=== PATIENT | male | born 1955 | race Caucasian/White ===

== ENCOUNTER → 2019-11-28 09:53 | Outpatient (POV) | payer OTHER, SELFPAY | PROVIDERS: Visit Provider Dermatology | DX: Z00.00 Encounter for general adult medical examination without abnormal findings (principal) ==

== ENCOUNTER → 2020-02-02 09:07 | Outpatient (CLI) | payer MEDICARE, SELFPAY ==
[2020-02-02 14:03] LABS: Basophils # 0.1 K/mm3 (0-0.2); Basophils % 0.7 % (0.1-2.0); Eosinophils # 0.2 K/mm3 (0.0-0.4); Eosinophils % 1.3 % (0.1-12.0); Hematocrit 44.1 % (42.0-52.0); Hemoglobin 14.7 g/dL (14.1-18.0); Lymphocytes # 3.5 K/mm3 (0.7-4.5); Lymphocytes % 29.3 % (10-50); Mean Corpuscular HGB Conc 33.3 g/dL (31.8-35.4); Mean Platelet Volume 7.7 fl (7.4-10.4); Monocytes # 0.6 K/mm3 (0.1-1.0); Monocytes % 4.8 % (1.7-9.3); Neutrophils # 7.7 K/mm3 (1.8-7.8); Neutrophils % 63.8 % (37.0-80.0); Platelet Count 356 K/mm3 (142-424); Red Cell Distribution Width 13.7 % (11.5-17.5)
[2020-02-02 15:11] LABS: Alanine Aminotransferase 32 U/L (12-78); Albumin Level 4.5 g/dl (3.5-5.0); Albumin/Globulin Ratio 1.7 (1.1-1.8); Alkaline Phosphatase 71 U/L (38-126); Aspartate Amino Transferase 36 U/L (17-59); Bilirubin,Total 0.5 mg/dl (0.2-1.3); Blood Urea Nitrogen 17 mg/dl (9-20); Carbon Dioxide 26 mmol/L (22.0-30.0); Chloride 100 mmol/L (98-107); Cholesterol 165 mg/dl (140-200); Estimated Glomerular Filt Rate 75 ml/min (>60); GFR (African American) 91 ML/MIN (>60); Globulin 2.7 g/dL (1.3-3.2); Glucose 138 mg/dl (74-100); HDL Cholesterol 33 mg/dl (40-60); Sodium 137 mmol/L (136-145); Total Protein,Serum 7.2 g/dl (6.3-8.2); Triglycerides 162 mg/dl (30-150); VLDL Cholesterol 32 mg/dL (0-40)
[2020-02-02 15:22] LABS: Direct LDL Cholesterol 123.47 mg/dL (100-129)
[2020-02-02 15:39] LABS: Thyroid Stimulating Hormone 2.83 uIU/mL (0.465-4.68)
== END ==
PROVIDERS: PCP Nurse Practitioner Family; Visit Provider Nurse Practitioner Family
DX: I10 Essential (primary) hypertension (principal)
CPT/HCPCS: 36415; 80053; 80061; 84443; 85025

== ENCOUNTER → 2020-10-17 10:43 | Outpatient (CLI) | payer MEDICARE, SELFPAY ==
[2020-10-17 11:21] LABS: Basophils # 0.1 K/mm3 (0-0.2); Basophils % 0.3 % (0.1-2.0); Hematocrit 29.1 % (42.0-52.0); Hemoglobin 8.8 g/dL (14.1-18.0); Lymphocytes # 1.7 K/mm3 (0.7-4.5); Lymphocytes % 8.1 % (10-50); Mean Corpuscular HGB Conc 30.2 g/dL (31.8-35.4); Mean Corpuscular Volume 79.3 fl (80-94); Mean Platelet Volume 7.8 fl (7.4-10.4); Monocytes # 0.7 K/mm3 (0.1-1.0); Monocytes % 3.6 % (1.7-9.3); Platelet Count 566 K/mm3 (142-424); Red Blood Count 3.67 M/mm3 (4.60-6.20); Red Cell Distribution Width 14.7 % (11.5-17.5); White Blood Count 20.4 K/mm3 (4.8-10.8)
[2020-10-17 11:26] LABS: MANUAL DIFFERENTIAL MANUAL DIFFERENTIAL (MANUAL DIFF)
[2020-10-17 12:21] LABS: Alanine Aminotransferase 29 U/L (12-78); Albumin/Globulin Ratio 1.3 (1.1-1.8); Alkaline Phosphatase 100 U/L (38-126); Anion Gap 17.5 mEq/L (5-15); Aspartate Amino Transferase 35 U/L (17-59); Bilirubin,Total 0.8 mg/dl (0.2-1.3); Blood Urea Nitrogen 16 mg/dl (9-20); Calcium 9.3 mg/dl (8.4-10.2); Carbon Dioxide 28 mmol/L (22.0-30.0); Chloride 87 mmol/L (98-107); Estimated Glomerular Filt Rate 67 ml/min (>60); GFR (African American) 81 ML/MIN (>60); Globulin 3.1 g/dL (1.3-3.2); Glucose 192 mg/dl (74-100); Potassium 4.5 mmoL/L (3.5-5.1); Sodium 128 mmol/L (136-145); Total Protein,Serum 7.1 g/dl (6.3-8.2)
[2020-10-17 12:52] LABS: Prostate Specific Ag Screen 0.6 ng/ml (0.0-4.0)
[2020-10-17 12:53] LABS: Thyroid Stimulating Hormone 1.96 uIU/mL (0.465-4.68)
[2020-10-17 13:36] LABS: Coronavirus 19 IgG Antibody Negative (Negative); Coronavirus 19 IgM Antibody Negative (Negative)
[2020-10-17 13:41] LABS: Eosinophils % 1 % (0-3); Lymphocytes % 8 % (10-50); Monocytes % 3 % (2-9); Neutrophils % 88 % (42-76); Platelet Estimate Moderate Increase; Total Cells Counted 100
[2020-10-17 13:42] LABS: Anisocytosis 1+; Hypochromasia 2+; Microcytosis 1+
[2020-10-18 17:19] LABS: Iron 16 ug/dL (49-181)
[2020-10-18 17:28] LABS: Total Iron Binding Capacity 435 ug/dL (261-462)
[2020-10-20 15:06] LABS: CEA 4.2 ng/mL (0.0-4.7)
== END ==
PROVIDERS: Visit Provider Nurse Practitioner Family
DX: Z03.818 Encounter for observation for suspected exposure to other biological agents ruled out (principal); R53.81 Other malaise; K59.00 Constipation, unspecified; D50.9 Iron deficiency anemia, unspecified; K62.89 Other specified diseases of anus and rectum; D72.829 Elevated white blood cell count, unspecified; E87.1 Hypo-osmolality and hyponatremia; D37.5 Neoplasm of uncertain behavior of rectum; Z12.5 Encounter for screening for malignant neoplasm of prostate
CPT/HCPCS: 36415; 80053; 82378; 82728; 83540; 83550; 84443; 85007; 85025; 86328; G0103

== ENCOUNTER → 2020-10-18 10:27 | Outpatient (CLI) | payer MEDICARE, SELFPAY ==
--- NOTE | 2020-10-18 10:42 | CT_ITS ---
PROCEDURE: CT CHEST WO/W CON CLINCAL INDICATION: LEUKACYTOSIS,ANEMIA,HYPONATREMIA, constipation, nausea COMPARISON: No exams were available for comparison TECHNIQUE: IV Contrast: 75ml Isovue 370 Axial images obtained with sagittal and coronal reformats. All CT scans at the facility use one or more dose reduction, viz: automated exposure control, ma/kV adjustment per patient size (including targeted exams where dose is matched to indication, i.e. head), or iterative reconstruction technique. FINDINGS: HEART AND MEDIASTINAL STRUCTURES: Overall cardiac size is normal though there is borderline left atrial enlargement. There is moderate coronary arterial calcification. LUNGS AND PLEURAL SPACES: The lung hunt are well-expanded and appear clear of infiltrate. There is no pulmonary congestion and there is no pleural fluid. BONY STRUCTURES: No acute bony abnormalities apparent. There are minor degenerate changes midthoracic spine. UPPER ABDOMEN: Unremarkable. ADDITIONAL FINDINGS: No other significant abnormalities. IMPRESSION: Moderate coronary artery calcification otherwise essentially unremarkable CT scan of the chest Dictated by: Dr. Santos De Luna MD 10/18/2020 12:02 Dr. Santos De Luna MD in 10/18/2020 12:02
--- NOTE | 2020-10-18 10:42 | CT_ITS ---
PROCEDURE: CT ABDOMEN PELVIS WO/W CON CLINICAL INDICATION: LEUKACYTOSIS,ANEMIA,HYPONATREMIA COMPARISON: No exams were available for comparison TECHNIQUE: IV Contrast: 75ML OPTIRAY 350 Oral Contrast none given Axial images obtained with sagittal and coronal reformats. All CT scans at the facility use one or more dose reduction, viz: automated exposure control, ma/kV adjustment per patient size (including targeted exams where dose is matched to indication, i.e. head), or iterative reconstruction technique. FINDINGS: Lower thorax: No acute finding ABDOMEN: Liver: No masses or biliary dilatation. Gallbladder: Nondistended. No radio opaque stones. Pancreas: No masses or peripancreatic fluid collections. Spleen: unremarkable Adrenals: The right adrenal is normal, there is a small nodular lesion left adrenal isodense with the renal gland and probably an adenoma Kidneys/ureters: The kidneys are normal in size and show symmetrical function both appearing normal. ABDOMEN & PELVIS: Stomach bowel: The stomach and duodenal sweep appear normal. There is a large left inguinal hernia containing couple of loops of nondilated small bowel and mesentery. The remainder of the small bowel is unremarkable.. There is a somewhat dilated left gonadal vein probably secondary to distortion of the left hemiscrotum due to the inguinal hernia. The appendix is normal in caliber and air-filled. There is scattered stool and gas seen throughout the colon to the level of the rectum. There is asymmetric wall thickening of the rectum with some distortion of the air filled lumen worrisome for a malignant mass. Peritoneum: No abnormal fluid collections. No obvious inflammatory changes. No free air. Lymph nodes: No enlarged lymph nodes apparent. Vasculature: There is moderate arteriosclerotic calcification of the abdominal aorta but there is no aneurysm. There is prominent arteriosclerotic calcification of the splenic artery but there is no aneurysm. Bones: No acute fracture PELVIS: Reproductive: unremarkable Bladder: The bladder is moderately filled with urine and appears normal. The prostate is normal. Appendix: Normal IMPRESSION: 1. Asymmetrical wall thickening of the rectum with distortion of the lumen worrisome for malignancy. 2. Large left inguinal hernia containing nondilated loops of small bowel and mesentery 3. Possible small adenoma left adrenal gland Dictated by: Dr. Santos De Luna MD 10/18/2020 12:29 Dr. Santos De Luna MD in [place] 10/18/2020 12:29
== END ==
PROVIDERS: PCP Nurse Practitioner Family; Visit Provider Nurse Practitioner Family
DX: D72.829 Elevated white blood cell count, unspecified (principal); D30.9 Benign neoplasm of urinary organ, unspecified; E87.1 Hypo-osmolality and hyponatremia
CPT/HCPCS: 71270; 74178; Q9967

== ENCOUNTER 2020-10-23 15:25 | Inpatient (IN) | payer MEDICARE, SELFPAY ==
[2020-10-23] VITALS (14 sets, daily range): BP systolic 92–142; BP diastolic 57–75; PULSE 88–121; RESP 16–22; TEMP 36.7–38.7; O2SAT 92–100; BMI 26.4
--- NOTE | 2020-10-23 16:07 | PC.NURSE ---
Dr. Avitia notified.
[2020-10-23 16:31] LABS: Basophils % 0.1 % (0.1-2.0); Hemoglobin 8.1 g/dL (14.1-18.0); Lymphocytes # 1.1 K/mm3 (0.7-4.5); Lymphocytes % 6.4 % (10-50); Mean Corpuscular Hemoglobin 23.6 pg (27.0-31.2); Mean Corpuscular Volume 76.3 fl (80-94); Mean Platelet Volume 8.1 fl (7.4-10.4); Monocytes # 0.6 K/mm3 (0.1-1.0); Monocytes % 3.7 % (1.7-9.3); Neutrophils # 14.7 K/mm3 (1.8-7.8); Neutrophils % 89.7 % (37.0-80.0); Platelet Count 567 K/mm3 (142-424); Red Blood Count 3.41 M/mm3 (4.60-6.20); Red Cell Distribution Width 14.9 % (11.5-17.5); White Blood Count 16.4 K/mm3 (4.8-10.8)
[2020-10-23 16:39] LABS: Chloride 88 mmol/L (98-107); MANUAL DIFFERENTIAL MANUAL DIFFERENTIAL (MANUAL DIFF); Potassium 3.4 mmoL/L (3.5-5.1); Sodium 125 mmol/L (136-145)
[2020-10-23 16:41] LABS: Alanine Aminotransferase 27 U/L (12-78); Blood Urea Nitrogen 18 mg/dl (9-20); Creatinine Clearance Estimated 77 mL/min (50-200); Estimated Glomerular Filt Rate 67 ml/min (>60); GFR (African American) 81 ML/MIN (>60)
[2020-10-23 16:42] LABS: Albumin Level 3.8 g/dl (3.5-5.0); Albumin/Globulin Ratio 1.1 (1.1-1.8); Alkaline Phosphatase 114 U/L (38-126); Anion Gap 13.4 mEq/L (5-15); Aspartate Amino Transferase 41 U/L (17-59); Bilirubin,Total 0.6 mg/dl (0.2-1.3); Calcium 8.9 mg/dl (8.4-10.2); Carbon Dioxide 27 mmol/L (22.0-30.0); Globulin 3.5 g/dL (1.3-3.2); Glucose 191 mg/dl (74-100); Total Protein,Serum 7.3 g/dl (6.3-8.2)
--- NOTE | 2020-10-23 16:42 | HMH.GSCON ---
*Admission Date: 10/23/20 *Reason for consult:: Anemia; rectal mass *History of present illness: This is a 65-year-old gentleman seen in consultation from Dr. Walton for evaluation regarding anemia and rectal mass. He was recently diagnosed with leukocytosis and anemia after presenting with weakness. A CT scan of his chest, abdomen, and pelvis completed on October 18 revealed rectal wall thickening consistent with neoplasm. Secondary to the lesion's location he was scheduled for further evaluation and management at a tertiary care center. He has been scheduled to initially undergo endoscopic evaluation with [facility] in [place] to be completed on November 04. However, due to increasing weakness and concerns for worsening anemia he was admitted for observation after outpatient follow-up earlier today. Review of Systems - Constitutional Reports fatigue, Reports lack of energy - Eyes Denies change in vision - ENT Denies difficulty swallowing - *Cardiovascular Denies chest pain at rest - *Respiratory Denies cough - *Gastrointestinal Denies bright, red blood in stools - *Genitourinary Denies difficulty urinating - *Musculoskeletal Denies tingling - Integumentary/Breasts Denies new lesions - *Neurologic Denies abnormal movements - Psychiatric Denies anxiety - Endocrine Denies flushing - Hematologic/Lymphatic Denies easy bleeding [facility] History Medical History: Denies:: Cancer, Diabetes Mellitus Type 1, Diabetes Mellitus Type 2, MRSA *Have you ever received a pneumonia vaccine?: No *Have you received a flu vaccine this season?: No Amputation: No Fractures: No - *Social History Smoking Status: Former smoker Alcohol Intake: never *Occupational Status:: retired *Travel in the last 8 weeks: None Family Hx:: Unable to obtain Meds Home Medications Medication Instructions Recorded Confirmed Type Amlodipine Besylate [Amlodipine 5 mg PO DAILY 10/23/20 10/23/20 History 10mg Tab] Bisoprolol/Hydrochlorothiazide 5 - 6.25 mg PO DAILY 10/23/20 10/23/20 History [Bisoprolol-Hctz 5-6.25 mg Tab] Metformin HCl 500 mg PO DAILY 10/23/20 10/23/20 History Allergies Allergy/AdvReac Type Severity Reaction Status Date / Time amoxicillin Allergy Verified 03/22/18 21:26 Exam Vital signs and Labs for Last 24 Hours: Temp Pulse Resp BP Pulse Ox 98.2 F 121 H 18 142/71 H 100 10/23/20 15:41 10/23/20 15:41 10/23/20 15:41 10/23/20 15:41 10/23/20 15:41 Laboratory Results - last 24 hr 10/23/20 16:00: WBC 16.4 H, RBC 3.41 L, Hgb 8.1 L, Hct 26.0 L, MCV 76.3 L, MCH 23.6 L, MCHC 31.0 L, RDW 14.9, Plt Count 567 H, MPV 8.1, Neut % (Auto) 89.7 H, Lymph % (Auto) 6.4 L, [place] % (Auto) 3.7, Eos % (Auto) 0.0 L, Baso % (Auto) 0.1, Neut # (Auto) 14.7 H, Lymph # (Auto) 1.1, [place] # (Auto) 0.6, Eos # (Auto) 0.0, Baso # (Auto) 0.0 10/23/20 16:00: Sodium 125 L, Potassium 3.4 L, Chloride 88 L I & O for Last 24 hours: Intake & Output 10/21/20 10/22/20 10/23/20 10/24/20 11:59 11:59 11:59 11:59 Weight 179 lb 7 oz - Constitutional no acute distress - *Routine Respiratory Exam Absent: respiratory distress - *Routine Cardiovascular Exam Present: other - *Routine Abdominal Exam Absent: obese - *Routine Rectal Exam Patient deferred: visual exam, digital exam - *Routine Skin Exam Present: intact - *Routine Neurological Exam Present: alert - Routine Psychiatric Exam Present: normal affect Results - Labs 10/23/20 16:00 10/23/20 16:00 Laboratory Results - last 24 hr 10/23/20 16:00: WBC 16.4 H, RBC 3.41 L, Hgb 8.1 L, Hct 26.0 L, MCV 76.3 L, MCH 23.6 L, MCHC 31.0 L, RDW 14.9, Plt Count 567 H, MPV 8.1, Neut % (Auto) 89.7 H, Lymph % (Auto) 6.4 L, [place] % (Auto) 3.7, Eos % (Auto) 0.0 L, Baso % (Auto) 0.1, Neut # (Auto) 14.7 H, Lymph # (Auto) 1.1, [place] # (Auto) 0.6, Eos # (Auto) 0.0, Baso # (Auto) 0.0 10/23/20 16:00: Sodium 125 L, Potassium 3.4
--- NOTE | 2020-10-23 16:43 | P.CONPHA_ITS ---
[facility] Pharmacy VTE Monitoring - Patient Demographics Admission date: 10/23/20 Report Date: 10/23/20 Time: 16:43 Allergies/Adverse Reactions: Patient Allergies amoxicillin Allergy (Verified 03/22/18 21:26) Height: 1.75 m Weight: 81.391 kg - VTE Risk Labs: VTE Related Lab Results Hgb 8.1 g/dL (14.1-18.0) L 10/23/20 16:00 Hct 26.0 % (42.0-52.0) L 10/23/20 16:00 Plt Count 567 K/mm3 (142-424) H 10/23/20 16:00 BUN 18 mg/dl (9-20) 10/23/20 16:00 Creatinine 1.10 mg/dl (0.66-1.25) 10/23/20 16:00 Estimated Creat Clear 77 mL/min (50-200) 10/23/20 16:00 Was VTE Risk Assessment Performed: Yes VTE Score: 1 VTE Risk Level: Very Low Risk Clinical Trial Participant: No - Prophylaxis VTE Prophylaxis Ordered?: Yes Types of VTE Prophylaxis: TEDS Knee High
--- NOTE | 2020-10-23 16:55 | HMH.PHAINT ---
home medication list was confirmed using list from dr olw office and [facility] pharmacy
[2020-10-23 16:56] LABS: Lymphocytes % 3 % (10-50); Monocytes % 2 % (2-9); Neutrophils % 95 % (42-76); RBC Morphology Normal; Total Cells Counted 100
[2020-10-23 16:57] LABS: Hypochromasia 2+; Microcytosis 1+; Platelet Estimate Moderate Increase
[2020-10-23 17:23] LABS: Coronavirus 19 IgG Antibody Negative (Negative); Coronavirus 19 IgM Antibody Negative (Negative)
--- NOTE | 2020-10-23 18:14 | HMH.HP ---
*Admission Date: 10/23/20 *Chief complaint: Anemia, Weakness *History of present illness: 65 yr old male with recently diagnosed iron deficiency anemia and rectal mass seen on CT presented to office today with complaints of increased malaise, weakness and requiring a cane to ambulate safely which is new. Decision was made to admit for transfsuion and additional evaluation. Found to be hyponatremic as well which is likely contributing to his symptoms Of note, he is scheduled to see a colorectal surgeon in [place] on November 04, 2020. 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, retired) Smoking Status: Former smoker Alcohol Intake: never Substance Use Type: denies use *Occupational Status:: retired *Travel in the last 8 weeks: None Family Hx:: Cancer (Breast), Coronary Artery Disease Review of Systems - Review of Systems Review of systems:: pertinent systems reviewed and negative unless documented below - Constitutional Reports fatigue, Reports lack of energy, Reports malaise, Reports weakness, Reports weight loss, Denies fever(s) - *Cardiovascular Denies chest pain, Denies shortness of breath, Denies foot swelling - *Respiratory Denies cough - *Gastrointestinal Reports change in bowel habits, Reports constipation, Denies abdominal pain - *Genitourinary Denies difficulty urinating - *Musculoskeletal Denies joint pain - Integumentary/Breasts Denies rash - *Neurologic Reports weakness, Denies abnormal movements, Denies headache(s), Denies tingling - Psychiatric Reports anxiety Meds Home Medications Medication Instructions Recorded Confirmed Type Amlodipine Besylate [Amlodipine 5 mg PO DAILY 10/23/20 10/23/20 History 10mg Tab] Bisoprolol/Hydrochlorothiazide 2 tab PO DAILY 10/23/20 10/23/20 History [Bisoprolol-Hctz 5-6.25 mg Tab] Metformin HCl 500 mg PO DAILY 10/23/20 10/23/20 History Allergies Allergy/AdvReac Type Severity Reaction Status Date / Time amoxicillin Allergy Verified 03/22/18 21:26 Exam Vital signs and Labs for Last 24 Hours: Temp Pulse Resp BP Pulse Ox 98.2 F 121 H 18 142/71 H 100 10/23/20 15:41 10/23/20 15:41 10/23/20 15:41 10/23/20 15:41 10/23/20 15:41 Laboratory Results - last 24 hr 10/23/20 16:00: WBC 16.4 H, RBC 3.41 L, Hgb 8.1 L, Hct 26.0 L, MCV 76.3 L, MCH 23.6 L, MCHC 31.0 L, RDW 14.9, Plt Count 567 H, MPV 8.1, Neut % (Auto) 89.7 H, Lymph % (Auto) 6.4 L, [place] % (Auto) 3.7, Eos % (Auto) 0.0 L, Baso % (Auto) 0.1, Neut # (Auto) 14.7 H, Lymph # (Auto) 1.1, [place] # (Auto) 0.6, Eos # (Auto) 0.0, Baso # (Auto) 0.0, Total Counted 100, Neutrophils % (Manual) 95 H, Lymphocytes % (Manual) 3 L, Monocytes % (Manual) 2, Platelet Estimate Moderate increase, RBC Morphology Normal, Hypochromasia 2+, Microcytosis 1+ 10/23/20 16:00: Sodium 125 L, Potassium 3.4 L, Chloride 88 L, Carbon Dioxide 27, Anion Gap 13.4, BUN 18, Creatinine 1.10, Estimated Creat Clear 77, Estimated GFR 67, Est GFR ( Amer) 81, Glucose 191 H, Calcium 8.9, Total Bilirubin 0.6, AST 41, ALT 27, Alkaline Phosphatase 114, Total Protein 7.3, Albumin 3.8, Globulin 3.5 H, Albumin/Globulin Ratio 1.1 10/23/20 16:00: Blood Type B Positive, Antibody Screen Negative, Crossmatch (AHG) See Detail 10/23/20 16:00: SARS-CoV-2 IgG Ab (Rapid) Negative, SARS-CoV-2 IgM Ab (Rapid) Negative I & O for Last 24 hours: Intake & Output 10/21/20 10/22/20 10/23/20 10/24/20 11:59 11:59 11:59 11:59 Weight 179 lb 7 oz - *Routine H
--- NOTE | 2020-10-23 18:27 | PC.NURSE ---
Pt is alert and oriented x 4. Pt was a poor historian as far as medical history. Pt is pale and weak. He is tachy with HR counted at 106, bp is stable and he is afebrile and on RA. Pt has ns at 100 ml/hr. Awaiting blood from lab for transfusion. CB in reach. Remains safe. Have instructed pt to call for help and not get up alone as he is weak and unsteady. Fall bracelet is in place. Lungs cta, bs x 4. S1S2 noted.
--- NOTE | 2020-10-23 18:51 | PC.NURSE ---
Pt states he had x 1 loose stool.
--- NOTE | 2020-10-23 21:45 | PC.NURSE ---
Pt noted to be febrile at this time with oral temp noted at 101.4 F. Tachycardia noted as well at 104 bpm. Wolfgang ALBERT called and spoke with this RN. Provided MD with update of v/s. Pt to receive IV ATB post blood transfusion and a 500 ml bolus of IVF. states that if hgb is noted greater than 8.1 upon 1-hour post H&H no need to further notify MD mobile application architect. If hgb noted lower than 8.1 please notify MD post transfusion.
[2020-10-23 23:31] LABS: Occult Blood,Stool Positive (Negative)
[2020-10-24] VITALS (17 sets, daily range): BP systolic 109–144; BP diastolic 56–77; PULSE 86–104; RESP 16–24; TEMP 36.4–37.4; O2SAT 91–100; BMI 26.2
[2020-10-24 01:48] LABS: Hematocrit 28.2 % (42.0-52.0); Hemoglobin 8.4 g/dL (14.1-18.0)
--- NOTE | 2020-10-24 02:31 | PC.NURSE ---
Pt is alert and oriented x4. Pt tolerated blood transfusion well this evening. Administered Tylenol x1 prior to transfusion starting. pt noted afebrile since, with most recent oral temp of 98.4 F. Hgb increased to 8.4 post blood transfusion. Lungs noted clear t/o upon auscultation. Tolerated RA well with no c/o SOA. Tolerated diabetic diet well. No edema noted. Refused teds. Tolerated ambulation well with cane assist and standby staff assist. Weakness noted intermittently, this RN encouraged pt to ring call light for help with ambulation. Multiple loose stools noted this shift. No new orders when MD distribution technician consulted. Stool sent for occult specimen, positive results noted. Adequate urine output noted. VSS. Remains safe. Call light within reach. Will continue to monitor.
[2020-10-24 07:28] LABS: Chloride 95 mmol/L (98-107); Potassium 3.2 mmoL/L (3.5-5.1); Sodium 129 mmol/L (136-145)
[2020-10-24 07:31] LABS: Alanine Aminotransferase 26 U/L (12-78); Alkaline Phosphatase 80 U/L (38-126); Anion Gap 10.2 mEq/L (5-15); Aspartate Amino Transferase 38 U/L (17-59); Basophils % 0.3 % (0.1-2.0); Bilirubin,Total 0.7 mg/dl (0.2-1.3); Blood Urea Nitrogen 14 mg/dl (9-20); Calcium 8.2 mg/dl (8.4-10.2); Carbon Dioxide 27 mmol/L (22.0-30.0); Creatinine Clearance Estimated 84 mL/min (50-200); Eosinophils % 0.1 % (0.1-12.0); Estimated Glomerular Filt Rate 97 ml/min (>60); GFR (African American) 117 ML/MIN (>60); Glucose 163 mg/dl (74-100); Hematocrit 27.9 % (42.0-52.0); Lymphocytes # 1.2 K/mm3 (0.7-4.5); Lymphocytes % 10.3 % (10-50); Mean Corpuscular HGB Conc 32.2 g/dL (31.8-35.4); Mean Corpuscular Hemoglobin 25.1 pg (27.0-31.2); Mean Corpuscular Volume 78.1 fl (80-94); Mean Platelet Volume 7.8 fl (7.4-10.4); Monocytes # 0.6 K/mm3 (0.1-1.0); Monocytes % 5.8 % (1.7-9.3); Neutrophils # 9.3 K/mm3 (1.8-7.8); Neutrophils % 83.5 % (37.0-80.0); Platelet Count 414 K/mm3 (142-424); Red Blood Count 3.57 M/mm3 (4.60-6.20); Red Cell Distribution Width 15.3 % (11.5-17.5); White Blood Count 11.1 K/mm3 (4.8-10.8)
--- NOTE | 2020-10-24 08:11 | HMH.ACPN2 ---
Internal Medicine - PN: Subj *Date: 10/24/20 *Time: 08:11 Interval history: Patient still appears quite fatigued this morning. Reviewed labs, hemoglobin improved to 9 this morning. No indication for further transfusion. Hyponatremia improving. Tolerating good p.o. intake. Denies chest pain, nausea, vomiting. Had loose stools overnight that were guaiac positive. Fever resolved overnight. Quite fatigued but hemodynamically stable. Exam Vital signs and Labs for Last 24 Hours: Temp Pulse Resp BP Pulse Ox 97.7 F 96 H 17 125/72 97 10/24/20 04:00 10/24/20 04:00 10/24/20 04:00 10/24/20 04:00 10/24/20 04:00 Laboratory Results - last 24 hr 10/23/20 16:00: WBC 16.4 H, RBC 3.41 L, Hgb 8.1 L, Hct 26.0 L, MCV 76.3 L, MCH 23.6 L, MCHC 31.0 L, RDW 14.9, Plt Count 567 H, MPV 8.1, Neut % (Auto) 89.7 H, Lymph % (Auto) 6.4 L, [place] % (Auto) 3.7, Eos % (Auto) 0.0 L, Baso % (Auto) 0.1, Neut # (Auto) 14.7 H, Lymph # (Auto) 1.1, [place] # (Auto) 0.6, Eos # (Auto) 0.0, Baso # (Auto) 0.0, Total Counted 100, Neutrophils % (Manual) 95 H, Lymphocytes % (Manual) 3 L, Monocytes % (Manual) 2, Platelet Estimate Moderate increase, RBC Morphology Normal, Hypochromasia 2+, Microcytosis 1+ 10/23/20 16:00: Sodium 125 L, Potassium 3.4 L, Chloride 88 L, Carbon Dioxide 27, Anion Gap 13.4, BUN 18, Creatinine 1.10, Estimated Creat Clear 77, Estimated GFR 67, Est GFR ( Amer) 81, Glucose 191 H, Calcium 8.9, Total Bilirubin 0.6, AST 41, ALT 27, Alkaline Phosphatase 114, Total Protein 7.3, Albumin 3.8, Globulin 3.5 H, Albumin/Globulin Ratio 1.1 10/23/20 16:00: Blood Type B Positive, Antibody Screen Negative, Crossmatch (AHG) See Detail 10/23/20 16:00: SARS-CoV-2 IgG Ab (Rapid) Negative, SARS-CoV-2 IgM Ab (Rapid) Negative 10/23/20 16:05: Blood Type Confirm B Positive 10/23/20 22:50: Stool Occult Blood Positive A 10/24/20 01:40: Hgb 8.4 L, Hct 28.2 L 10/24/20 06:20: WBC 11.1 H D, RBC 3.57 L, Hgb 9.0 L, Hct 27.9 L, MCV 78.1 L, MCH 25.1 L, MCHC 32.2, RDW 15.3, Plt Count 414 D, MPV 7.8, Neut % (Auto) 83.5 H, Lymph % (Auto) 10.3, [place] % (Auto) 5.8, Eos % (Auto) 0.1, Baso % (Auto) 0.3, Neut # (Auto) 9.3 H, Lymph # (Auto) 1.2, [place] # (Auto) 0.6, Eos # (Auto) 0.0, Baso # (Auto) 0.0 10/24/20 06:20: Sodium 129 L, Potassium 3.2 L, Chloride 95 L, Carbon Dioxide 27, Anion Gap 10.2, BUN 14, Creatinine 0.80 D, Estimated Creat Clear 84, Estimated GFR 97, Est GFR ( Amer) 117 D, Glucose 163 H, Calcium 8.2 L, Total Bilirubin 0.7, AST 38, ALT 26, Alkaline Phosphatase 80, Total Protein 6.0 L, Albumin 3.0 L D, Globulin 3.0, Albumin/Globulin Ratio 1.0 L I & O for Last 24 hours: Intake & Output 10/21/20 10/22/20 10/23/20 10/24/20 23:59 23:59 23:59 23:59 Intake Total 263 / 503 1140 / 1140 Balance 263 / 503 1140 / 1140 Weight 81.391 kg 80.399 kg Narrative: - *Routine HEENT Exam Head: Present: normocephalic, atraumatic Eye: Present: EOMI, conjunctivae pink (pale) ENT: Present: mucous membranes moist - *Routine Neck Exam Present: supple. Absent: tenderness - *Routine Respiratory Exam Present: CTA bilaterally - *Routine Cardiovascular Exam Present: RRR. Absent: murmur - *Routine Abdominal Exam Present: soft, normoactive bowel sounds. Absent: tenderness, distended (large left inguinal hernia) - *Routine Extremities Exam Present: pulses intact. Absent: edema - *Routine Skin Exam Present: dry, pallor. Absent: rash - *Routine Neurological Exam Present: alert, oriented X3, moving all extremities, normal tone, normal speech - Routine Psychiatric Exam Present: cooperative, good judgment, anxious Assessment and Plan (1) Anemia Status: Acute Qualifiers: Anemia type: iron deficiency Iron deficiency anemia type: unspecified iron deficiency Qualified Code(s): D50.9 - Iron deficiency anemia, unspecified Category: Medical Code(s): D64.9 - Anemia, unspecified (2) Mass in rectum Status: Acute Category: Medical Code(s): K62.8
--- NOTE | 2020-10-24 09:56 | P.PN_ITS ---
Subjective Patient reports: no new complaints (still feels a bit worn out ) Progress Note: A&P (1) Anemia Status: Acute Assessment and plan: good response to 1 unit PRBCs. He does remain somewhat symptomatic with regard to overall weakness. He also remains slightly tachycardic. Follow-up repeat labs Additional transfusions (+/-) as per primary service (2) Mass in rectum Status: Acute Assessment and plan: Endoscopy scheduled (3) Leukocytosis Status: Acute Assessment and plan: Continues to improve (4) Hyponatremia Status: Acute (5) Diabetes type 2, controlled Status: Chronic (6) HTN (hypertension) Status: Chronic (7) Left inguinal hernia Status: Chronic (8) SIRS (systemic inflammatory response syndrome) Status: Acute Exam Vital signs and Labs for Last 24 Hours: Temp Pulse Resp BP Pulse Ox 97.9 F 104 H 24 117/59 L 91 L 10/24/20 08:00 10/24/20 08:00 10/24/20 08:00 10/24/20 08:00 10/24/20 08:00 Laboratory Results - last 24 hr 10/23/20 16:00: WBC 16.4 H, RBC 3.41 L, Hgb 8.1 L, Hct 26.0 L, MCV 76.3 L, MCH 23.6 L, MCHC 31.0 L, RDW 14.9, Plt Count 567 H, MPV 8.1, Neut % (Auto) 89.7 H, Lymph % (Auto) 6.4 L, [place] % (Auto) 3.7, Eos % (Auto) 0.0 L, Baso % (Auto) 0.1, Neut # (Auto) 14.7 H, Lymph # (Auto) 1.1, [place] # (Auto) 0.6, Eos # (Auto) 0.0, Baso # (Auto) 0.0, Total Counted 100, Neutrophils % (Manual) 95 H, Lymphocytes % (Manual) 3 L, Monocytes % (Manual) 2, Platelet Estimate Moderate increase, RBC Morphology Normal, Hypochromasia 2+, Microcytosis 1+ 10/23/20 16:00: Sodium 125 L, Potassium 3.4 L, Chloride 88 L, Carbon Dioxide 27, Anion Gap 13.4, BUN 18, Creatinine 1.10, Estimated Creat Clear 77, Estimated GFR 67, Est GFR ( Amer) 81, Glucose 191 H, Calcium 8.9, Total Bilirubin 0.6, AST 41, ALT 27, Alkaline Phosphatase 114, Total Protein 7.3, Albumin 3.8, G lobulin 3.5 H, Albumin/Globulin Ratio 1.1 10/23/20 16:00: Blood Type B Positive, Antibody Screen Negative, Crossmatch (AHG) See Detail 10/23/20 16:00: SARS-CoV-2 IgG Ab (Rapid) Negative, SARS-CoV-2 IgM Ab (Rapid) Negative 10/23/20 16:05: Blood Type Confirm B Positive 10/23/20 22:50: Stool Occult Blood Positive A 10/24/20 01:40: Hgb 8.4 L, Hct 28.2 L 10/24/20 06:20: WBC 11.1 H D, RBC 3.57 L, Hgb 9.0 L, Hct 27.9 L, MCV 78.1 L, MCH 25.1 L, MCHC 32.2, RDW 15.3, Plt Count 414 D, MPV 7.8, Neut % (Auto) 83.5 H, Lymph % (Auto) 10.3, [place] % (Auto) 5.8, Eos % (Auto) 0.1, Baso % (Auto) 0.3, Neut # (Auto) 9.3 H, Lymph # (Auto) 1.2, [place] # (Auto) 0.6, Eos # (Auto) 0.0, Baso # (Auto) 0.0 10/24/20 06:20: Sodium 129 L, Potassium 3.2 L, Chloride 95 L, Carbon Dioxide 27, Anion Gap 10.2, BUN 14, Creatinine 0.80 D, Estimated Creat Clear 84, Estimated GFR 97, Est GFR ( Amer) 117 D, Glucose 163 H, Calcium 8.2 L, Total Bilirubin 0.7, AST 38, ALT 26, Alkaline Phosphatase 80, Total Protein 6.0 L, Albumin 3.0 L D, Globulin 3.0, Albumin/Globulin Ratio 1.0 L I & O for Last 24 hours: Intake & Output 10/21/20 10/22/20 10/23/20 10/24/20 11:59 11:59 11:59 11:59 Intake Total 1643 / 1643 Balance 1643 / 1643 Weight 177 lb 4 oz - Constitutional no acute distress - *Routine Respiratory Exam Absent: respiratory distress - *Routine Cardiovascular Exam Present: tachycardia - *Routine Abdominal Exam Present: soft
--- NOTE | 2020-10-24 18:04 | PC.NURSE ---
PATIENT A&O X4, LUNGS CLEAR, PULSES EQUAL. PATIENT AMBULATED TO RESTROOM SEVERAL TIMES DURING THIS RN SHIFT. ONE EPISODE OF BLOODY BOWEL. MD AWARE. PATIENT TOLERATED MEALS, NO COMPLAINTS OF PAIN. PATIENT RECEIVED 1UNIT OF RBC, PATIENT TOLERATED ADMINISTRATION WELL. THIS RN RECEIVED RESULTS OF BLOOD CULTURE ,THIS RN REPORTED FINDINGS TO DR. HERRERA. NO NEW CONCERNS AT THIS TIME.
[2020-10-24 19:19] LABS: Hematocrit 31.7 % (42.0-52.0)
[2020-10-24 19:57] LABS: Hemoglobin 10.3 g/dL (14.1-18.0)
--- NOTE | 2020-10-24 20:06 | PC.NURSE ---
Paged MD Multani, home performance consultant for MD Walton regarding pt blood culture results. No new orders.
[2020-10-25 03:43] VITALS: BP 117/78; PULSE 90; RESP 16; TEMP 37.1; O2SAT 100
[2020-10-25 05:00] VITALS: BMI 26.0
--- NOTE | 2020-10-25 05:16 | PC.NURSE ---
Pt is A&Ox4. Lung sounds clear. Active bowel sounds in all 4 quads. Pt has ambulated to the bathroom with standby assist this shift. Balance steady with satisfactory gait. Pt has been very anxious this shift, stating oh what's wrong with me? repeatedly and very inquisitive regarding care. This nurse did discuss POC with pt and he verbalized understanding. Call light remains in reach. No other complaints or acute changes at this time. Will continue to monitor.
--- NOTE | 2020-10-25 06:47 | P.PN_ITS ---
Subjective Patient reports: feels better (He states that he feels quite a bit better after the last blood...still not normal though ) Progress Note: A&P (1) Anemia Status: Acute Assessment and plan: Good response to blood transfusion. Follow-up a.m. labs Possible discharge home with outpatient follow-up (currently scheduled for endoscopic evaluation of rectal mass) (2) Mass in rectum Status: Acute (3) Leukocytosis Status: Acute (4) Hyponatremia Status: Acute (5) Diabetes type 2, controlled Status: Chronic (6) HTN (hypertension) Status: Chronic (7) Left inguinal hernia Status: Chronic (8) SIRS (systemic inflammatory response syndrome) Status: Acute Exam Vital signs and Labs for Last 24 Hours: Temp Pulse Resp BP Pulse Ox 98.8 F 90 16 117/78 100 10/25/20 03:43 10/25/20 03:43 10/25/20 03:43 10/25/20 03:43 10/25/20 03:43 Laboratory Results - last 24 hr 10/23/20 16:00: Blood Type B Positive, Antibody Screen Negative, Crossmatch ([facility]) See Detail 10/24/20 06:20: WBC 11.1 H D, RBC 3.57 L, Hgb 9.0 L, Hct 27.9 L, MCV 78.1 L, MCH 25.1 L, MCHC 32.2, RDW 15.3, Plt Count 414 D, MPV 7.8, Neut % (Auto) 83.5 H, Lymph % (Auto) 10.3, [place] % (Auto) 5.8, Eos % (Auto) 0.1, Baso % (Auto) 0.3, Neut # (Auto) 9.3 H, Lymph # (Auto) 1.2, [place] # (Auto) 0.6, Eos # (Auto) 0.0, Baso # (Auto) 0.0 10/24/20 06:20: Sodium 129 L, Potassium 3.2 L, Chloride 95 L, Carbon Dioxide 27, Anion Gap 10.2, BUN 14, Creatinine 0.80 D, Estimated Creat Clear 84, Estimated GFR 97, Est GFR ( Amer) 117 D, Glucose 163 H, Calcium 8.2 L, Total Bilirubin 0.7, AST 38, ALT 26, Alkaline Phosphatase 80, Total Protein 6.0 L, Albumin 3.0 L D, Globulin 3.0, Albumin/Globulin Ratio 1.0 L 10/24/20 19:10: Hgb 10.3 L D, Hct 31.7 L I & O for Last 24 hours: Intake & Output 10/22/20 10/23/20 10/24/20 10/25/20 11:59 11:59 11:59 11:59 Intake Total 1643 / 1643 2041 Balance 1643 / 1643 2041 Weight 177 lb 4 oz 175 lb 14.4 oz Microbiology Reports for the Last 24 Hours: Microbiology 10/23/20 16:05 Blood Blood Culture - Preliminary 10/23/20 16:00 Blood Blood Culture - Preliminary - Constitutional no acute distress - *Routine Respiratory Exam Absent: respiratory distress - *Routine Cardiovascular Exam Present: RRR - *Routine Neurological Exam Present: alert
[2020-10-25 07:10] LABS: Basophils % 0.4 % (0.1-2.0); Eosinophils % 0.3 % (0.1-12.0); Hematocrit 36.9 % (42.0-52.0); Lymphocytes # 1.7 K/mm3 (0.7-4.5); Lymphocytes % 18.9 % (10-50); Mean Corpuscular HGB Conc 31.4 g/dL (31.8-35.4); Mean Corpuscular Hemoglobin 25.5 pg (27.0-31.2); Mean Corpuscular Volume 81.3 fl (80-94); Mean Platelet Volume 7.3 fl (7.4-10.4); Monocytes # 0.4 K/mm3 (0.1-1.0); Monocytes % 4.9 % (1.7-9.3); Neutrophils # 6.7 K/mm3 (1.8-7.8); Neutrophils % 75.5 % (37.0-80.0); Platelet Count 448 K/mm3 (142-424); Red Blood Count 4.53 M/mm3 (4.60-6.20); White Blood Count 8.9 K/mm3 (4.8-10.8)
[2020-10-25 07:15] LABS: Chloride 100 mmol/L (98-107)
[2020-10-25 07:16] LABS: Potassium 3.2 mmoL/L (3.5-5.1); Sodium 135 mmol/L (136-145)
[2020-10-25 07:18] LABS: Alanine Aminotransferase 29 U/L (12-78); Aspartate Amino Transferase 40 U/L (17-59); Blood Urea Nitrogen 9 mg/dl (9-20); Creatinine Clearance Estimated 83 mL/min (50-200); Estimated Glomerular Filt Rate 97 ml/min (>60); GFR (African American) 117 ML/MIN (>60)
[2020-10-25 07:19] LABS: Albumin Level 3.6 g/dl (3.5-5.0); Alkaline Phosphatase 90 U/L (38-126); Anion Gap 12.2 mEq/L (5-15); Bilirubin,Total 0.7 mg/dl (0.2-1.3); Calcium 8.9 mg/dl (8.4-10.2); Carbon Dioxide 26 mmol/L (22.0-30.0); Globulin 3.5 g/dL (1.3-3.2); Glucose 116 mg/dl (74-100); Total Protein,Serum 7.1 g/dl (6.3-8.2)
--- NOTE | 2020-10-25 07:45 | HMH.DCSUM ---
General - General Admission date:: 10/23/20 Discharge date: 10/25/20 HPI HPI: 65 yr old male with recently diagnosed iron deficiency anemia and rectal mass seen on CT presented to office today with complaints of increased malaise, weakness and requiring a cane to ambulate safely which is new. Decision was made to admit for transfsuion and additional evaluation. Found to be hyponatremic as well which is likely contributing to his symptoms Of note, he is scheduled to see a colorectal surgeon in [place] on November 04, 2020. Hospital Course Hospital Course: 65-year-old gentleman with recent diagnosis of colorectal mass. Has developed anemia secondary to slow GI bleed. Anemia with symptomatic leading to admission. Has received 2 units of packed red blood cells and responded well with improvement in energy and vitals. On admission however blood cultures were obtained because of his leukocytosis and he was shown to have gram-negative bacteremia (E. coli). Initiated on Levaquin with plan for 14-day treatment. Patient remained afebrile during admission. Tolerating p.o. intake. Energy somewhat improved on day of discharge but still quite fatigued. Extensive discussion about likelihood of recurring anemia and fatigue through diagnosis and treatment of his colorectal mass. Patient medically stable for discharge. Denies chest pain, nausea, vomiting, shortness of breath. Complains of fatigue. Objective Vital signs: Temp Pulse Resp BP Pulse Ox 98.8 F 90 16 117/78 100 10/25/20 03:43 10/25/20 03:43 10/25/20 03:43 10/25/20 03:43 10/25/20 03:43 Narrative: - *Routine HEENT Exam Head: Present: normocephalic, atraumatic Eye: Present: EOMI, conjunctivae pink (pale) ENT: Present: mucous membranes moist - *Routine Neck Exam Present: supple. Absent: tenderness - *Routine Respiratory Exam Present: CTA bilaterally - *Routine Cardiovascular Exam Present: RRR. Absent: murmur - *Routine Abdominal Exam Present: soft, normoactive bowel sounds. Absent: tenderness, distended (large left inguinal hernia) - *Routine Extremities Exam Present: pulses intact. Absent: edema - *Routine Skin Exam Present: dry, pallor. Absent: rash - *Routine Neurological Exam Present: alert, oriented X3, moving all extremities, normal tone, normal speech - Routine Psychiatric Exam Present: cooperative, good judgment, anxious Results Labs on day of discharge: Labs from last 24 hours 10/25/20 10/25/20 10/24/20 06:32 06:32 19:10 WBC 8.9 RBC 4.53 L D Hgb 10.3 L D Hct 36.9 L 31.7 L MCV 81.3 MCH 25.5 L MCHC 31.4 L RDW 16.0 Plt Count 448 H MPV 7.3 L Neut % (Auto) 75.5 Lymph % (Auto) 18.9 [place] % (Auto) 4.9 Eos % (Auto) 0.3 Baso % (Auto) 0.4 Neut # (Auto) 6.7 Lymph # (Auto) 1.7 [place] # (Auto) 0.4 Eos # (Auto) 0.0 Baso # (Auto) 0.0 Sodium 135 L Potassium 3.2 L Chloride 100 Carbon Dioxide 26 Anion Gap 12.2 BUN 9 D Creatinine 0.80 Estimated Creat Clear 83 Estimated GFR 97 Est GFR ( Amer) 117 Glucose 116 H Calcium 8.9 Total Bilirubin 0.7 AST 40 ALT 29 Alkaline Phosphatase 90 Total Protein 7.1 Albumin 3.6 D Globulin 3.5 H Albumin/Globulin Ratio 1.0 L Blood Type Antibody Screen Crossmatch ([facility]) 10/23/20 16:00 WBC RBC Hgb Hct MCV MCH MCHC RDW Plt Count MPV Neut % (Auto) Lymph % (Auto) [place] % (Auto) Eos % (Auto) Baso % (Auto) Neut # (Auto) Lymph # (Auto) [place] # (Auto) Eos # (Auto) Baso # (Auto) Sodium Potassium Chloride Carbon Dioxide Anion Gap BUN Creatinine Estimated Creat Clear Estimated GFR Est GFR ( Amer) Glucose Calcium Total Bilirubin AST ALT Alkaline Phosphatase Total Protein Albumin Globulin Albumin/Globulin Ratio Blood Type B Positive Antibody Screen Negative Crossma
[2020-10-25 08:00] VITALS: BP 138/78; PULSE 89; RESP 18; TEMP 36.9; O2SAT 97
[2020-10-25 08:00] LABS: Hemoglobin 11.6 g/dL (14.1-18.0)
[2020-10-25 09:00] VITALS: O2SAT 97
--- NOTE | 2020-10-25 10:26 | HMH.PHAINT ---
DISCHARGE COUNSELING COMPLETED ON PATIENT. NEW PRESCRIPTIONS FOR BISOPROLOL AND LEVOFLOXACIN. THESE WERE SENT TO [facility]. PATIENT IS TO CONTINUE ALL OTHER HOME MEDICATIONS WITH THE EXCEPTION OF BISOPROLOL/HCTZ. PATIENT VERBALIZED UNDERSTANDING AND HAD NO QUESTIONS AT THIS TIME. -MARLENE LEBLANC, PHARMD
--- NOTE | 2020-10-25 10:45 | PC.NURSE ---
DISCUSSED DISCHARGE INSTRUCTIONS WITH PT INCLUDING FOLLOW UP APPOINTMENT AND MEDICATIONS. PT VERBLIAZED UNDERSTANDING. PT WAS TOLD TO CALL DR MOONEY'S OFFICE IN THE AM AND SCHEDULE AN APPOINTMENT WITH JACQUELINE BARBOZA FOR NEXT WEEK. HE VERBALIZED UNDERSTANDING. PHARMACY EDUCATED PT ON HOME MEDICATIONS. PT WAS ADVISED TO TAKE LEVAQUIN AROUND SUPPER TONIGHT SINCE; HE RECEIVED IT AROUND 10PM WHILE HERE. HE VERBALIZED UNDERSTANDING. IV WAS REMOVED WITH CATHETER INTACT. KOBAN AND 4X4S APPLIED. HOME MEDICATIONS WERE RETURNED BACK TO THE PATIENT. NO REPORT OF PAIN WHILE UNDER MY CARE. PT IS CURRENTLY SITTING IN HIS CHAIR WITH CALL LIGHT WITHIN REACH. VSS. WILL CONTINUE TO MONITOR.
== END 2020-10-25 10:48 | disposition home or self-care (01) | DRG 374 ==
PROVIDERS: Internal Medicine Adolescent Medicine; Nurse Practitioner Family; Admitting Provider Internal Medicine Adolescent Medicine; PCP Internal Medicine Adolescent Medicine; Visit Provider Internal Medicine Adolescent Medicine
DX: D37.5 Neoplasm of uncertain behavior of rectum (principal); A41.51 Sepsis due to Escherichia coli [E. coli]; E87.1 Hypo-osmolality and hyponatremia; R65.10 Systemic inflammatory response syndrome (SIRS) of non-infectious origin without acute organ dysfunction; D50.0 Iron deficiency anemia secondary to blood loss (chronic); Z79.84 Long term (current) use of oral hypoglycemic drugs; K40.90 Unilateral inguinal hernia, without obstruction or gangrene, not specified as recurrent; E11.9 Type 2 diabetes mellitus without complications; I10 Essential (primary) hypertension
CPT/HCPCS: 36415; 80053; 82272; 85007; 85014; 85018; 85025; 86328; 86850; 87040; 87077; 87186; G0328; J1956; P9016

== ENCOUNTER → 2020-11-04 14:44 | Outpatient (CLI) | payer MEDICARE, SELFPAY ==
[2020-11-04 15:04] LABS: Basophils % 0.2 % (0.1-2.0); Eosinophils % 0.2 % (0.1-12.0); Mean Corpuscular Hemoglobin 25.7 pg (27.0-31.2); Mean Corpuscular Volume 82.3 fl (80-94)
[2020-11-04 15:12] LABS: Hematocrit 35.2 % (42.0-52.0); Lymphocytes # 1.2 K/mm3 (0.7-4.5); Lymphocytes % 10.3 % (10-50); Mean Corpuscular HGB Conc 31.3 g/dL (31.8-35.4); Mean Platelet Volume 7.3 fl (7.4-10.4); Monocytes # 0.6 K/mm3 (0.1-1.0); Monocytes % 4.8 % (1.7-9.3); Neutrophils % 84.5 % (37.0-80.0); Platelet Count 583 K/mm3 (142-424); Red Blood Count 4.27 M/mm3 (4.60-6.20); Red Cell Distribution Width 16.6 % (11.5-17.5); White Blood Count 11.9 K/mm3 (4.8-10.8)
[2020-11-04 17:07] LABS: Blood Urea Nitrogen 21 mg/dl (9-20); Calcium 9.9 mg/dl (8.4-10.2); Carbon Dioxide 27 mmol/L (22.0-30.0); Chloride 98 mmol/L (98-107); Estimated Glomerular Filt Rate 67 ml/min (>60); GFR (African American) 81 ML/MIN (>60); Glucose 168 mg/dl (74-100); Sodium 136 mmol/L (136-145)
== END ==
PROVIDERS: Visit Provider Nurse Practitioner Family
DX: I10 Essential (primary) hypertension (principal)
CPT/HCPCS: 36415; 80048; 85025

== ENCOUNTER → 2021-04-07 11:46 | Outpatient (CLI) | payer MEDICARE, SELFPAY ==
[2021-04-07 12:33] LABS: Basophils % 0.2 % (0.1-2.0); Eosinophils % 0.2 % (0.1-12.0); Hematocrit 31.5 % (42.0-52.0); Hemoglobin 10.6 g/dL (14.1-18.0); Lymphocytes # 0.7 K/mm3 (0.7-4.5); Lymphocytes % 4.9 % (10-50); Mean Corpuscular HGB Conc 33.6 g/dL (31.8-35.4); Mean Corpuscular Hemoglobin 29.8 pg (27.0-31.2); Mean Corpuscular Volume 88.7 fl (80-94); Mean Platelet Volume 7.5 fl (7.4-10.4); Monocytes # 0.7 K/mm3 (0.1-1.0); Neutrophils % 89.8 % (37.0-80.0); Platelet Count 452 K/mm3 (142-424); Red Blood Count 3.56 M/mm3 (4.60-6.20); White Blood Count 14.5 K/mm3 (4.8-10.8)
[2021-04-07 12:46] LABS: Chloride 99 mmol/L (98-107)
[2021-04-07 12:47] LABS: Potassium 4.3 mmoL/L (3.5-5.1); Sodium 134 mmol/L (136-145)
[2021-04-07 12:50] LABS: Anion Gap 15.3 mEq/L (5-15); Blood Urea Nitrogen 15 mg/dl (9-20); Calcium 9.6 mg/dl (8.4-10.2); Carbon Dioxide 24 mmol/L (22.0-30.0); Estimated Glomerular Filt Rate 113 ml/min (>60); GFR (African American) 137 ML/MIN (>60); Glucose 173 mg/dl (74-100)
[2021-04-07 13:04] LABS: MANUAL DIFFERENTIAL MANUAL DIFFERENTIAL (MANUAL DIFF)
[2021-04-07 16:10] LABS: Eosinophils % 1 % (0-3); Lymphocytes % 2 % (10-50); Monocytes % 3 % (2-9); Neutrophils % 94 % (42-76); Total Cells Counted 100
[2021-04-07 16:11] LABS: Ovalocytes 1+; Platelet Estimate Normal
== END ==
PROVIDERS: Visit Provider Nurse Practitioner Family
DX: T14.8XXA Other injury of unspecified body region, initial encounter (principal)
CPT/HCPCS: 36415; 80048; 85007; 85025

== ENCOUNTER 2023-02-15 01:05 | Emergency (ER) | payer MEDICARE, SELFPAY ==
[2023-02-15 01:06] VITALS: BP 188/100; PULSE 92; RESP 19; TEMP 36.7; O2SAT 99; BMI 26.6
--- NOTE | 2023-02-15 01:35 | CT_ITS ---
PROCEDURE INFORMATION: Exam: CT Abdomen And Pelvis With Contrast Exam date and time: 02/15/2023 2:11 AM Age: 68 years old Clinical indication: Other: Loss of bladder control; Additional info: Loss bladder control acute retention TECHNIQUE: Imaging protocol: Computed tomography of the abdomen and pelvis with contrast. Radiation optimization: All CT scans at this facility use at least one of these dose optimization techniques: automated exposure control; mA and/or kV adjustment per patient size (includes targeted exams where dose is matched to clinical indication); or iterative reconstruction. Contrast material: ISOVUE; Contrast volume: 75 ml; Contrast route: IV; REPORTING DATA: Count of CT and Cardiac NM exams in prior 12 months: This patient has received 0 known CTs and 0 known cardiac nuclear medicine studies in the 12 months prior to the current study. COMPARISON: CT ABDOMEN PELVIS WO/W CON 10/18/2020 11:18 AM FINDINGS: Lungs: No acute finding. Liver: Moderate hepatic steatosis is evident. Gallbladder and bile ducts: Normal. No calcified stones. No ductal dilation. Pancreas: Normal. No ductal dilation. Spleen: Normal. No splenomegaly. Adrenal glands: Normal. No mass. Kidneys and ureters: Normal. No hydronephrosis. Stomach and bowel: There is a left mid abdomen descending colostomy with moderate parastomal herniation of fat. Appendix: The appendix is absent Intraperitoneal space: Unremarkable. No free air. No significant fluid collection. Vasculature: Unremarkable. No abdominal aortic aneurysm. Lymph nodes: Unremarkable. No enlarged lymph nodes. Urinary bladder: The bladder is very mildly distended with diffuse thickening of the wall with 3 intraluminal calculi noted measuring up to 15 mm in size. Reproductive: Unremarkable as visualized. Bones/joints: Unremarkable. Soft tissues: There is a small fat containing right inguinal hernia. There is an ill-defined soft tissue focus in the presacral region measuring approximally 5.0 x 6.7 x 6.0 cm. This likely represents sequela of prior rectal resection and possible treatment for rectal neoplasm. Recurrent tumor can not be excluded based on this single exam. The adjacent sacrum is intact without erosive change. IMPRESSION: 1. Very mild distention of the urinary bladder with diffuse wall thickening and intraluminal calculi present. Cystitis should be considered in light of the wall thickening. 2. Ill-defined presacral soft tissue mass may represent sequela of treatment for rectal cancer however, recurrent tumor can not be excluded based on this single examination. Follow-up examination, correlation with interval study since September 2020 or PET-CT could be performed as clinically indicated. 3. Other nonurgent findings as detailed.
[2023-02-15 01:39] LABS: Microscopic, Urine URINE MICROSCOPIC (MICROSCOPIC)
[2023-02-15 01:40] LABS: Appearance,Urine CLEAR (Clear); Bilirubin,Urine Negative (Negative); Blood, Urine 3+ (Negative); Color,Urine YELLOW (Yellow); Glucose,Urine (UA) 3+ (Negative); Ketones,Urine Negative (Negative); Leukocyte Esterase,Urine Negative (Negative); Nitrate,Urine Negative (Negative); Protein,Urine TRACE (Negative); Specific Gravity, Urine 1.015 (1.005-1.030); Urobilinogen,Urine 0.2 EU/dl (0.2)
[2023-02-15 01:47] VITALS: BP 182/98; PULSE 80; RESP 19; O2SAT 97
[2023-02-15 01:52] LABS: Basophils # 0.1 K/mm3 (0-0.2); Basophils % 1.2 % (0.1-2.0); Eosinophils # 0.1 K/mm3 (0.0-0.4); Eosinophils % 1.3 % (0.1-12.0); Hematocrit 47.7 % (42.0-52.0); Hemoglobin 16.1 g/dL (14.1-18.0); Lymphocytes # 1.4 K/mm3 (0.7-4.5); Lymphocytes % 15.2 % (10-50); Mean Corpuscular HGB Conc 33.8 g/dL (31.8-35.4); Mean Corpuscular Hemoglobin 32.6 pg (27.0-31.2); Mean Corpuscular Volume 96.4 fl (80-94); Mean Platelet Volume 7.6 fl (7.4-10.4); Monocytes # 0.5 K/mm3 (0.1-1.0); Monocytes % 5.1 % (1.7-9.3); Neutrophils # 7.2 K/mm3 (1.8-7.8); Neutrophils % 77.2 % (37.0-80.0); Platelet Count 278 K/mm3 (142-424); Red Blood Count 4.95 M/mm3 (4.60-6.20); Red Cell Distribution Width 14.2 % (11.5-17.5); White Blood Count 9.4 K/mm3 (4.8-10.8)
[2023-02-15 01:55] LABS: Bacteria,Urine Trace /lpf; RBC,Urine TNTC #/hpf (0-3); Squamous Epithelial Cell,Urine Occasional #/hpf (0-5)
[2023-02-15 01:57] LABS: Alanine Aminotransferase 43 U/L (12-78); Albumin Level 5.3 g/dl (3.5-5.0); Albumin/Globulin Ratio 1.6 (1.1-1.8); Alkaline Phosphatase 73 U/L (38-126); Anion Gap 15.4 mEq/L (5-15); Aspartate Amino Transferase 45 U/L (17-59); Bilirubin,Total 0.7 mg/dl (0.2-1.3); Blood Urea Nitrogen 14 mg/dl (9-20); Calcium 9.3 mg/dl (8.4-10.2); Carbon Dioxide 27 mmol/L (22.0-30.0); Chloride 96 mmol/L (98-107); Creatinine Clearance Estimated 82 mL/min (50-200); Estimated Glomerular Filt Rate 96 ml/min (>60); GFR (African American) 116 ML/MIN (>60); Globulin 3.3 g/dL (1.3-3.2); Glucose 225 mg/dl (74-100); Potassium 4.4 mmoL/L (3.5-5.1); Sodium 134 mmol/L (136-145); Total Protein,Serum 8.6 g/dl (6.3-8.2)
[2023-02-15 02:00] VITALS: BP 169/95; PULSE 76; RESP 18; O2SAT 96
[2023-02-15 02:02] LABS: C-Reactive Protein 4.2 mg/L (0-4)
[2023-02-15 02:06] LABS: Acetone, Serum (Rapid) None Detected (None Detect)
[2023-02-15 02:30] VITALS: BP 161/91; PULSE 84; O2SAT 98
[2023-02-15 02:40] LABS: Erythrocyte Sedimentation Rate 16 mm/hr (0-20)
--- NOTE | 2023-02-15 03:05 | HMH.EDUROGM ---
Discharge Plan Disposition Patient Disposition: Home, Self-Care Chief Complaint: Urogenital-Male Prescriptions Prescriptions: No Action amlodipine 10 MG tablet 5 mg PO DAILY bisoprolol fumarate 5 MG tablet 10 mg PO DAILY Referrals Follow up/Referrals: Robb Walton MD [Primary Care Provider] - See instructions Marvin Jeffers MD [Referring] - See instructions Clinical Impressions Clinical Impression: Cystitis, Mass in rectum, Bladder calculus, Diabetes Instructions Patient Instructions: DI for Acute Cystitis Discharge ED Provider: Adriane (ED)Eliu Male Urogenital HPI General Chief complaint: Urogenital-Male Stated complaint: frequent urination Time Seen by Provider: 02/15/23 02:05 Mode of Arrival: Family Vehicle Source of Information: Patient and Medical Record Limitations: No Limitations Description of Symptoms (Recalled from ER Triage Doc. by RN): Pt c/o loss of bladder control that began last night at bedtime. States he was had no urinary issues t/o the day. Denies any gross hematuria, dysuria, or burning with urination. Denies abd pain or tenderness. Denies any fever, chills, or N/V/D. History of Present Illness HPI Narrative: has urinary sx which include dribbling w/o gross hematuria and no fever Onset (ago): hour(s) Duration: intermittent Severity: moderate Reports denies other symptoms Related Data Home Medications Medication Instructions Recorded Confirmed amlodipine 10 mg tablet 5 mg PO DAILY Blood pressure 10/23/20 02/15/23 bisoprolol fumarate 5 mg tablet 10 mg PO DAILY High blood pressure 02/15/23 02/15/23 Allergies Allergy/AdvReac Type Severity Reaction Status Date / Time amoxicillin Allergy Verified 03/22/18 21:26 [facility] Disclaimer: The information contained in this section may have been updated after the patient was seen, as this information can be updated by other users. Social History Smoking Status: Never smoker alcohol intake: never substance use type: denies use current occupational status: retired Travel in the last 8 weeks: None ROS Obtained: Yes All systems reviewed & no additional complaints except as documented Physical Exam General General appearance: alert Head Head exam: normocephalic Eye Eye exam: Present PERRL and EOMI ENT ENT exam: Present mucous membranes moist Neck Neck exam: Present trachea midline Respiratory Respiratory exam: Absent respiratory distress Cardiovascular Cardiovascular exam: Present regular rate Abdominal Exam Abdominal exam: Present soft and other (has colostomy) Extremities Exam Extremities exam: Absent calf tenderness Neurological Exam Neurological exam: Present alert and CN II-XII intact Skin Skin exam: Absent rash Medical Decision Making Medical Records Medical records reviewed: Yes I reviewed the patient's medical records. Loco Inquiry Pt receiving controlled substance: No Vital Signs: 02/15/23 01:06 02/15/23 01:47 02/15/23 02:00 Temperature 98.1 F Temperature Source Oral Pulse Rate 80 76 Pulse Rate [Right] 92 H Respiratory Rate 19 19 18 Blood Pressure 182/98 H 169/95 H Blood Pressure [Right Arm] 188/100 H Blood Pressure Mean [Right Arm] 129 Blood Pressure Source [Right Arm] Automatic Cuff 02 Sat by Pulse Oximetry 99 97 96 Oxygen Delivery Method Room Air Room Air Room Air 02/15/23 02:30 Temperature Temperature Source Pulse Rate 84 Pulse Rate [Right] Respiratory Rate Blood Pressure 161/91 H Blood Pressure [Right Arm] Blood Pressure Mean [Right Arm] Blood Pressure Source [Right Arm] 02 Sat by Pulse Oximetry 98 Oxygen Delivery Method Room Air Lab Data Lab results reviewed: Yes I reviewed the patient's lab results. Lab Results 02/15/23 01:10: Urine Color Yellow, Urine Appearance Clear, Urine pH 7.0, Ur Specific [place] 1.015, Urine Protein Trace, Urine Glucose (UA) 3+, Urine Ketones Negative, Urine Blood 3+, Urine Nitrate Negative,
[2023-02-15 03:18] VITALS: BP 181/97; PULSE 79; RESP 17; TEMP 36.8; O2SAT 99
[2023-02-15 03:35] LABS: Hemoglobin A1C 6.8 % (4.0-6.0)
== END 2023-02-15 03:36 | disposition home or self-care (01) ==
PROVIDERS: Emergency Provider Emergency Medicine; PCP Internal Medicine Adolescent Medicine
DX: N39.498 Other specified urinary incontinence (principal)
CPT/HCPCS: 74177; 80053; 81001; 82009; 83036; 84145; 85025; 85651; 86140; 87086; 96360; 99284; 99285; Q9967

== ENCOUNTER 2024-10-05 09:34 | Outpatient (CLI) | payer MEDICARE, SELFPAY ==
[2024-10-05 09:58] LABS: Basophils # 0.1 K/mm3 (0-0.2); Basophils % 1.1 % (0.1-2.0); Eosinophils # 0.1 K/mm3 (0.0-0.4); Eosinophils % 1.9 % (0.1-12.0); Lymphocytes # 1.8 K/mm3 (0.7-4.5); Lymphocytes % 23.6 % (10-50); Mean Corpuscular HGB Conc 35.6 g/dL (31.8-35.4); Mean Corpuscular Hemoglobin 33.1 pg (27.0-31.2); Mean Corpuscular Volume 92.8 fl (80-94); Mean Platelet Volume 7.4 fl (7.4-10.4); Monocytes # 0.4 K/mm3 (0.1-1.0); Monocytes % 5.1 % (1.7-9.3); Neutrophils # 5.1 K/mm3 (1.8-7.8); Neutrophils % 68.4 % (37.0-80.0); Platelet Count 244 K/mm3 (142-424); Red Blood Count 4.85 M/mm3 (4.60-6.20); Red Cell Distribution Width 13.7 % (11.5-17.5); White Blood Count 7.4 K/mm3 (4.8-10.8)
[2024-10-05 10:45] LABS: Albumin Level 4.7 g/dl (3.5-5.0); Chloride 100 mmol/L (98-107); Potassium 4.1 mmoL/L (3.5-5.1); Sodium 136 mmol/L (136-145)
[2024-10-05 10:48] LABS: Alanine Aminotransferase 28 U/L (12-78); Albumin/Globulin Ratio 1.7 (1.1-1.8); Alkaline Phosphatase 70 U/L (38-126); Aspartate Amino Transferase 38 U/L (17-59); Bilirubin,Total 0.9 mg/dl (0.2-1.3); Blood Urea Nitrogen 10 mg/dl (9-20); Calcium 9.4 mg/dl (8.4-10.2); Cholesterol 167 mg/dl (140-200); Estimated Glomerular Filt Rate 112 ml/min (>60); GFR (African American) 135 ML/MIN (>60); Globulin 2.7 g/dL (1.3-3.2); Glucose 345 mg/dl (74-100); Total Protein,Serum 7.4 g/dl (6.3-8.2)
[2024-10-05 10:49] LABS: HDL Cholesterol 24 mg/dl (40-60)
[2024-10-05 10:56] LABS: Triglycerides 606 mg/dl (30-150)
[2024-10-05 11:00] LABS: Direct LDL Cholesterol 59.57 mg/dL (100-129)
[2024-10-05 11:07] LABS: Free T4 (Free Thyroxine) 1.04 ng/dl (0.78-2.19)
[2024-10-05 11:20] LABS: Thyroid Stimulating Hormone 2.93 uIU/mL (0.465-4.68)
[2024-10-05 11:24] LABS: Ferritin 181 ng/ml (17.9-464)
[2024-10-05 11:53] LABS: Hemoglobin A1C 11.7 % (4.0-6.0)
[2024-10-05 12:09] LABS: Microalbumin/Creatinine Ratio 137.4
[2024-10-05 12:10] LABS: Creatinine,Urine Random 78 mg/dL (Not Estab.)
[2024-10-05 12:42] LABS: Vitamin B12 317 pg/mL (239-931)
[2024-10-05 14:53] LABS: Anion Gap 15.1 mEq/L (5-15); Carbon Dioxide 25 mmol/L (22.0-30.0)
== END 2024-10-05 23:59 | disposition home or self-care (01) ==
LOC: LAB 09:35
PROVIDERS: PCP Nurse Practitioner Family; Visit Provider Nurse Practitioner Family
DX: E78.2 Mixed hyperlipidemia (principal); E11.9 Type 2 diabetes mellitus without complications; I10 Essential (primary) hypertension; Z85.048 Personal history of other malignant neoplasm of rectum, rectosigmoid junction, and anus; R20.2 Paresthesia of skin
CPT/HCPCS: 36415; 80053; 80061; 82043; 82570; 82607; 82728; 82746; 83036; 84439; 84443; 85025